=== PATIENT | male | born 1975 | race Caucasian/White ===

== ENCOUNTER → 2020-10-05 | Outpatient (CLI) | payer BC ==
--- NOTE | 2020-10-05 12:55 | XR ---
EXAMINATION TYPE: XR chest 2V DATE OF EXAM: 10/05/2020 COMPARISON: NONE TECHNIQUE: PA and lateral views submitted. HISTORY: Presurgical FINDINGS: The lungs are clear and there is no pneumothorax, pleural effusion, or focal pneumonia. Heart size normal. No overt failure. IMPRESSION: 1. No acute process.
[2020-10-05 13:31] LABS: Basophils # (A) 0.1 k/uL (0-0.2); Basophils % (A) 1 %; Eosinophils # (A) 0.2 k/uL (0-0.7); Eosinophils % (A) 2 %; Lymphocytes # (A) 1.7 k/uL (1.0-4.8); Lymphocytes % (A) 20 %; MCH 30.6 pg (25.0-35.0); MCHC 32.6 g/dL (31.0-37.0); MCV 93.7 fL (80.0-100.0); Mean Platelet Volume 6.6; Monocytes # (A) 0.5 k/uL (0-1.0); Monocytes % (A) 6 %; Neutrophils # (A) 5.9 k/uL (1.3-7.7); Neutrophils % (A) 70 %; Platelet Count 246 k/uL (150-450); RDW 14.6 % (11.5-15.5); WBC 8.5 k/uL (3.8-10.6)
[2020-10-05 13:40] LABS: Calcium 10.5 mg/dL (8.4-10.2); Potassium 5.4 mmol/L (3.5-5.1)
[2020-10-05 14:20] LABS: HCT 59.1 % (39.0-53.0); HGB 19.3 gm/dL (13.0-17.5)
== END | disposition home or self-care (01) ==
LOC: LABPAT 12:05
PROVIDERS: ATTEND Orthopaedic Surgery Orthopaedic Surgery of the Spine
DX: Z01.812 Encounter for preprocedural laboratory examination (principal)
CPT/HCPCS: 36415; 71046; 80048; 85025; 86850; 86900; 86901

== ENCOUNTER → 2020-10-06 | Outpatient (CLI) | payer BC ==
[2020-10-06 09:44] LABS: Basophils # (A) 0.1 k/uL (0-0.2); Basophils % (A) 1 %; Eosinophils # (A) 0.3 k/uL (0-0.7); Eosinophils % (A) 3 %; Lymphocytes # (A) 1.9 k/uL (1.0-4.8); Lymphocytes % (A) 25 %; MCH 31.5 pg (25.0-35.0); MCHC 33.5 g/dL (31.0-37.0); Mean Platelet Volume 6.5; Monocytes # (A) 0.6 k/uL (0-1.0); Monocytes % (A) 7 %; Neutrophils # (A) 4.9 k/uL (1.3-7.7); Neutrophils % (A) 63 %; Platelet Count 224 k/uL (150-450); RBC 6.29 m/uL (4.30-5.90); RDW 14.3 % (11.5-15.5); WBC 7.8 k/uL (3.8-10.6)
[2020-10-06 09:52] LABS: HGB 19.8 gm/dL (13.0-17.5)
[2020-10-06 09:55] LABS: Prothrombin Time 10.2 sec (9.0-12.0)
[2020-10-06 09:56] LABS: Calcium 10.4 mg/dL (8.4-10.2); INR 0.9 (<1.2); Potassium 5.1 mmol/L (3.5-5.1)
[2020-10-06 10:10] LABS: HCT 59.1 % (39.0-53.0)
== END | disposition home or self-care (01) ==
LOC: LABPAT 09:04
PROVIDERS: ATTEND Orthopaedic Surgery Orthopaedic Surgery of the Spine
DX: Z01.812 Encounter for preprocedural laboratory examination (principal); M54.2 Cervicalgia
CPT/HCPCS: 36415; 80048; 85025; 85610; 85730

== ENCOUNTER 2020-10-09 07:59 | Day surgery (SDC) | payer BC ==
[2020-10-03 14:03] VITALS: BMI 28.8
[~2020-10-09 07:59] MED LIST: DEXAMETHASONE SOD PHOSPHATE 4 MG/ML 1 ML VIAL IV ONE; HYDROmorphone 0.5 MG/0.5 ML SYRINGE IVP PRN; MIDAZOLAM 2 MG/2 ML VIAL IV PRN; ONDANSETRON 4 MG/2 ML VIAL IVP ONE; SCOPOLAMINE 1.5MG/72HR PATCH TRANSDERM ONE; ceFAZolin 1,000 MG in SODIUM CHLORIDE 0.9% IRRIGATIO 1,000 ML IRRIGATION PRN
[2020-10-09] MEDS: LACTATED RINGERS 1,000 ML IV SCH ×3 (08:51→09:45)
[2020-10-09] MEDS ORDERED: LIDOCAINE 1% (10MG/ML) FOR IV START INTRADERMA ONE (08:51)
[2020-10-09 09:10] LABS: Basophils # (A) 0.1 k/uL (0-0.2); Basophils % (A) 1 %; Eosinophils # (A) 0.3 k/uL (0-0.7); Eosinophils % (A) 3 %; HGB 17.9 gm/dL (13.0-17.5); Lymphocytes % (A) 24 %; MCH 30.7 pg (25.0-35.0); MCHC 33.2 g/dL (31.0-37.0); MCV 92.4 fL (80.0-100.0); Mean Platelet Volume 6.9; Monocytes # (A) 0.5 k/uL (0-1.0); Monocytes % (A) 6 %; Neutrophils # (A) 5.2 k/uL (1.3-7.7); Neutrophils % (A) 65 %; Platelet Count 226 k/uL (150-450); RBC 5.84 m/uL (4.30-5.90); RDW 14.6 % (11.5-15.5); WBC 8.1 k/uL (3.8-10.6)
[2020-10-09] MEDS ORDERED: METOCLOPRAMIDE 5 MG/ML 2 ML VIAL ONE (09:10)
[2020-10-09 09:40] LABS: ALT 90 U/L (4-49); African American GFR (CKD) >90 (>60 ml/min/1.73 sqM); Anion Gap 9 mmol/L; Blood Urea Nitrogen 17 mg/dL (9-20); Carbon Dioxide 26 mmol/L (22-30); Chloride 105 mmol/L (98-107); Glucose 103 mg/dL (74-99); Non-African American GFR(CKD) 82 (>60 ml/min/1.73 sqM); Sodium 140 mmol/L (137-145); Total Bilirubin 0.8 mg/dL (0.2-1.3); Total Protein 7.4 g/dL (6.3-8.2)
[2020-10-09] MEDS ORDERED: LIDOCAINE 1% INJ 10MG/ML (20 ML MDV) ONE (09:44)
[2020-10-09] MEDS ORDERED: NEOSTIGMINE 1 MG/ML 10 ML VIAL ONE (09:44)
[2020-10-09] MEDS ORDERED: SUCCINYLCHOLINE CHLORIDE 100 MG/5 ML SYR IV ONE (09:44)
[2020-10-09] MEDS ORDERED: MIDAZOLAM 2 MG/2 ML VIAL ONE (09:44)
[2020-10-09] MEDS ORDERED: ROCURONIUM 10 MG/ML (5 ML VIAL) IV ONE (09:44)
[2020-10-09] MEDS ORDERED: GLYCOPYRROLATE 0.2 MG/ML 2 ML VIAL ONE (09:44)
[2020-10-09] MEDS ORDERED: HYDROmorphone (PF) 1 MG/ML ONE (09:44)
[2020-10-09] MEDS ORDERED: KETAMINE 10 MG/ML 20 ML VIAL ONE (09:44)
[2020-10-09] MEDS ORDERED: fentaNYL (PF) 50 MCG/ML 2 ML AMP ONE (09:44)
[2020-10-09] MEDS ORDERED: PROPOFOL 10 MG/ML 20 ML VIAL IV ONE (09:44)
[2020-10-09 09:54] LABS: AST 57 U/L (17-59); Alkaline Phosphatase 46 U/L (38-126); Potassium 4.7 mmol/L (3.5-5.1)
[2020-10-09] MEDS ORDERED: GELATIN SPONGE,ABSORB (LARGE) 1 EACH SPONGE MISCELLANE ONE (10:25)
[2020-10-09] MEDS ORDERED: THROMBIN (BOVINE) 5,000 UNIT VIAL TOPICAL ONE (10:25)
[2020-10-09] MEDS ORDERED: BUPIVACAINE-EPI 0.5%-1:200,000 10 ML VIAL SQ ONE (10:28)
--- NOTE | 2020-10-09 11:06 | XR ---
EXAMINATION TYPE: XR cervical spine 1V DATE OF EXAM: 10/09/2020 COMPARISON: NONE HISTORY: Neck pain. TECHNIQUE: Portable crosstable lateral view of cervical spine is obtained intraoperatively. FINDINGS: Exam is for surgical planning and not for diagnostic purposes. Overlying endotracheal tube partially imaged. Needle pointer is thought present at roughly T1 level, difficult in evaluating due to poor penetration related to bilateral shoulders interim intraoperative portable technique. IMPRESSION: As above.
--- NOTE | 2020-10-09 11:07 | XR ---
EXAMINATION TYPE: XR cervical spine 1V DATE OF EXAM: 10/09/2020 COMPARISON: Cervical spine x-ray earlier today. HISTORY: Neck pain. TECHNIQUE: Portable crosstable lateral view of cervical spine is performed after needle repositioning . FINDINGS: Exam is again noted not for diagnostic purposes but for surgical planning. After adjustment , metallic pointer is now at the anterior level of the C6-C7 disc space. IMPRESSION: As above.
[2020-10-09] MEDS ORDERED: LACTATED RINGERS 1,000 ML IV ONE (11:12)
[2020-10-09] MEDS ORDERED: BENZOCAINE/MENTHOL LOZENG 1 EACH LOZENGE MUCOUS MEM PRN (11:31)
[2020-10-09] MEDS ORDERED: HYDROmorphone 1 MG/ML 1 ML SYRINGE IVP PRN (11:31)
[2020-10-09] MEDS ORDERED: HYDROmorphone 0.5 MG/0.5 ML SYRINGE IVP PRN (11:31)
[2020-10-09] MEDS ORDERED: MAGNESIUM HYDROXIDE 2,400 MG/10 ML CUP PO PRN (11:31)
[2020-10-09] MEDS ORDERED: ACETAMINOPHEN TAB 325 MG TAB PO PRN (11:32)
[2020-10-09] MEDS ORDERED: HYDROcodone/APAP 5-325MG 1 EACH TAB PO PRN ×2 (11:32→11:33)
[2020-10-09] MEDS ORDERED: ONDANSETRON 4 MG/2 ML VIAL IVP PRN (11:32)
--- NOTE | 2020-10-09 11:38 | P.OP ---
Date of Procedure: 10/09/20 Preoperative Diagnosis: Massive herniated nucleus pulposis C6 7, upper extremity radiculopathy, upper extremity weakness, Postoperative Diagnosis: Same Anesthesia: GETA Pathology: none sent Condition: stable Disposition: PACU Description of Procedure: BRIEF OPERATIVE NOTE Preoperative Diagnosis:Massive herniated nucleus pulposis C6 7, upper extremity radiculopathy, upper extremity weakness, Postoperative Diagnosis:Massive herniated nucleus pulposis C6 7, upper extremity radiculopathy, upper extremity weakness, Procedure: Anterior cervical decompression with discectomy and fusion C6 7 Placement of interbody graft C6 7 Application of anterior cervical plate C6 7 Surgeon: Dr. Montejo Frickertron Checker: Gume Childers is present throughout the entire the case persistence during positioning, dissection, exposure, visualization, and all crucial elements of the case as well as closure. Anesthesia: General anesthesia per Dr. Lemons Estimated blood loss: Approximately 20 mL Complications: None apparent Components implanted: K2M [employer] anterior cervical plate system with screws and Vikos interbody allograft bone graft Disposition: To recovery room in good stable condition. OPERATIVE INDICATIONS The patient has had severe unrelenting issues in their neck and upper extremities. He is been having severe pain particularly at his left upper extremity with weakness or over his left tricep. He was found have a large disc herniation at C6 7 with massive extruded fragment causing severe stenosis which correlated well with his neck and upper extremity symptoms. The patient has been through conservative treatment. He was having significant weakness and we felt that his best course of action would be to pursue surgical intervention to decompress the nerve and stabilize the segment. We discussed various treatment options including surgery, and the patient wishes to proceed with surgery We discussed the risk, patient's alternatives and benefits of surgery including but not limited to, risk of bleeding risk of infection, risk of need for further surgery, risk of decreased, loss of motion, muscle function, malunion nonunion, hardware failure, nerve damage, paralysis, heart attack, and . OPERATIVE SUMMARY After discussing all the risks, patient alternatives and benefits at length, the patient elected to proceed with surgical intervention, signed informed consent, and presented for their procedure. The patient was seen and examined in the preoperative holding area and the surgical site was marked. The patient was given antibiotics and brought to the operating room. The patient was positioned on the operating room table in a supine position being careful to pad any bony prominences and pressure points. The patient was sedated and intubated by anesthesia in standard fashion. Once the airway and C- spine were stabilized the patient's arms were padded and tucked at her side, with her shoulders gently taped. The head was placed in a donut pad with the neck in good neutral alignment and position. We were careful to maintain the patient's cervical spine and good neutral alignment and position throughout. The patient was prepped and draped in a normal standard fashion. An appropriate timeout and keystone protocol performed. We were able to proceed with the surgery. The local wound area was infiltrated with local anesthetic. An incision was made transversely approximately 2-1/2 cm over the appropriate levels at C6 7. Dissection was taken down subcutaneously to the level of the platysma which was split in line with its fibers. Dissection was taken with a carotid approach, with the trachea and esophagus medial and the carotid sheath laterally. We dissected down to the anterior surface of the vertebral bodies. Intraoperative x-ray was taken which showed a marker at the appropriate level. With the appropriate level positively confirmed, we were able to proceed with discectomy at the appropriate levels of C6 7. All of the operative levels were exposed appropriately. The patient had all their twitches back, and there was no evidence of recurrent laryngeal issue. The wound was copiously irrigated and suctioned dry as had been done periodically throughout the case. At the appropriate level of C6 7, I established an annulotomy with an 11 blade scalpel. A discectomy was performed with a combination of pituitary rongeurs, curettes, a high-speed bur, and Kerrison rongeurs. The posterior longitudinal ligament was taken down as were any posterior osteophytes. There was a very large disc herniation with extrusion that I was able to mobilize and remove. Removal of the large fragments give excellent compression at the cord. This gave good central and bilateral foraminal decompression. There is no evidence of any dural tear or leak. The endplates were prepared with a high-speed bur. With the endplates in good parallel position, I was able to size for the appropriate size interbody graft. The wound was irrigated and suctioned dry the graft was prepared and malleted into position. It had good alignment and position with the anterior surface flush with the anterior surface of the vertebral bodies. With the grafts intact, I was able to measure and contour and appropriate sized plate. The plate was positioned at the midline over the appropriate of C6 7. Screw holes were established with a hand drill and drill guide. Screws were placed in good alignment and position with excellent bony purchase. They were seated under the locking device. The construct was checked and found to be stable. Intraoperative x-ray was taken which showed good alignment and position of the implants at the appropriate levels. There was no evidence of any dural tear or leak. Good hemostasis was maintained. The wound was copiously irrigated and suctioned dry as had been done periodically throughout the case. The platysma was closed with absorbable suture. The subcutaneous tissue was closed. The subcuticular tissue was closed with absorbable suture. The wound was cleaned and dried and dressed appropriately. A soft cervical collar was placed appropriately. The patient was woken up by anesthesia, extubated, transferred back gently to their hospital bed and brought to the recovery room in good stable condition. The patient will be admitted to the hospital for appropriate postoperative care, medical management and monitoring. We will continue to follow them closely about the postoperative course.
[2020-10-09 11:40] VITALS: TEMP 97.7
[2020-10-09] MEDS ORDERED: SODIUM CHLORIDE 0.9% 1,000 ML IV SCH (11:45)
[2020-10-09 11:50] VITALS: RESP 16
--- NOTE | 2020-10-09 12:11 | XR ---
EXAMINATION TYPE: XR cervical spine 1V DATE OF EXAM: 10/09/2020 COMPARISON: Earlier today HISTORY: 44-year-old male post cervical fusion TECHNIQUE: Single intraoperative crosstable lateral view FINDINGS: Patient is intubated. ACDF has been placed at C6-C7. This is partially obscured by the patient's shou lders. IMPRESSION: C6-C7 ACDF obscured by the patient's shoulders.
[2020-10-09] MEDS ORDERED: HYDROmorphone 0.5 MG/0.5 ML SYRINGE IVP ONE (12:40)
[2020-10-09 13:41] VITALS: BP 136/83; PULSE 102
[2020-10-09] MEDS ORDERED: GABAPENTIN 300 MG CAP PO SCH (21:00)
== END 2020-10-09 14:16 | disposition home or self-care (01) ==
LOC: OR 07:59
PROVIDERS: ATTEND Orthopaedic Surgery Orthopaedic Surgery of the Spine
DX: M50.10 Cervical disc disorder with radiculopathy, unspecified cervical region (principal); M48.02 Spinal stenosis, cervical region; K58.9 Irritable bowel syndrome, unspecified; Z97.3 Presence of spectacles and contact lenses; Z98.890 Other specified postprocedural states; Z79.899 Other long term (current) drug therapy
CPT/HCPCS: 80053; 85025; 72020; 22551; 20931; C1713; C1762; J2250; J2710; J2765; J0690 ×2; J2405; J2001; J3010; J1170 ×2; J0330; J2704; 86850; 86900; 86901